=== PATIENT | male | born 1985 | race Two or more races ===

== ENCOUNTER 2017-08-14 12:19 | Emergency (ER) | payer OTHER ==
[~2017-08-14] VITALS: Ht 175.3 cm; Wt 100.8 kg
[2017-08-14 13:00] LABS: BASOPHILS # (AUTO) 0.02 x10^3/uL (0-0.1); BASOPHILS % (AUTO) 0 % (0-1); EOSINOPHILS # (AUTO) 0.15 x10^3/uL (0-0.4); EOSINOPHILS % (AUTO) 3 % (1-7); LYMPHOCYTES # (AUTO) 1.93 x10^3/uL (1-3.4); LYMPHOCYTES % (AUTO) 33 % (22-44); MD NO; MEAN CORPUSCULAR HEMOGLOBIN 29.4 pg (27.5-34.5); MEAN CORPUSCULAR VOLUME 86.4 fL (81-97); MEAN PLATELET VOLUME 9.1 fL (7.4-10.4); MONOCYTES # (AUTO) 0.39 x10^3/uL (0.2-0.8); MONOCYTES % (AUTO) 7 % (2-9); NEUTROPHILS # (AUTO) 3.45 x10^3/uL (1.8-6.8); NEUTROPHILS % (AUTO) 58 % (42-75); PLATELET COUNT 230 x10^3/uL (130-400); RED BLOOD COUNT 5.76 x10^6/uL (4.38-5.82); RED CELL DISTRIBUTION WIDTH 13.5 % (9.4-14.8)
[2017-08-14] MEDS ORDERED: SODIUM CHLORIDE FLUSH 10ML SYR IVF ONE (13:00)
[2017-08-14 13:09] LABS: CHLORIDE 107 mmol/L (98-107)
[2017-08-14 13:14] LABS: ALBUMIN 4.2 g/dL (3.4-5.0); ANION GAP 8 mmol/L (5-15); CALCIUM 8.8 mg/dL (8.5-10.1)
[2017-08-14] MEDS ORDERED: KETOROLAC 30 MG/1 ML IM ONE (15:00)
[2017-08-14] MEDS ORDERED: KETOROLAC 30 MG/1 ML ONE (15:06)
[2017-08-14 16:26] VITALS: BP 131/80
== END 2017-08-14 16:28 | disposition home or self-care (01) ==
LOC: ED 15:59
DX: R20.2 Paresthesia of skin (principal); R42 Dizziness and giddiness; R51 Headache
CPT/HCPCS: 36415; 72050; 80048; 82040; 85025; 96372; 99285; J1885

== ENCOUNTER → 2018-12-04 | Outpatient (CLI) | payer BC, OTHER | END | disposition home or self-care (01) | LOC: CFH 13:38 | PROVIDERS: ATTEND Emergency Medicine | DX: N20.0 Calculus of kidney (principal) | CPT/HCPCS: 76770 ==

== ENCOUNTER 2021-03-27 18:09 | Emergency (ER) | payer OTHER ==
[~2021-03-27] VITALS: Ht 175.3 cm; Wt 100.0 kg
[2021-03-27 18:30] VITALS: BP 154/106
--- NOTE | 2021-03-27 18:34 | NUR ---
EKG DONE IN TRIAGE.
--- NOTE | 2021-03-27 19:49 | NUR ---
NIL 1900, 1927, 1948
== END 2021-03-27 19:51 | disposition left against medical advice (07) ==
LOC: ED 18:15
DX: R20.2 Paresthesia of skin (principal); R94.31 Abnormal electrocardiogram [ECG] [EKG]
CPT/HCPCS: 93005; 99283